=== PATIENT | female | born 1985 | race Caucasian/White ===

== ENCOUNTER 2017-09-24 22:03 | Emergency (ER) | payer BC, OTHER ==
[2017-09-24] MEDS: Morphine 4 MG/ML Syringe IM ONE (23:35)
--- NOTE | 2017-09-24 23:40 | EDM.PDOC ---
ED HPI GENERAL MEDICAL PROBLEM - General Chief Complaint: Lower Extremity Injury/Pain Stated Complaint: Fall off horse, right hip/groin pain Time Seen by Provider: 09/24/17 22:16 Source of Information: Reports: Patient History Limitations: Reports: No Limitations - History of Present Illness INITIAL COMMENTS - FREE TEXT/NARRATIVE: Patient was riding on her horse when a tractor was started and spooked the horse. She was bucked off and drug with her foot in the stirrup. She is complaining of left pinky pain, as well as pain to the right groin. She does walk in on her own. She denies chest pain, shortness of breath, abdominal pain. She also has some lower back pain. No complaints of distal foot pain/ circulation issues. Onset: Today, Sudden Location: Reports: Back, Lower Extremity, Right Quality: Reports: Ache Severity: Moderate Associated Symptoms: Reports: No Other Symptoms right hip/groin Pain Score (Numeric/FACES): 8 - Related Data Allergies Allergy/AdvReac Type Severity Reaction Status Date / Time No Known Allergies Allergy Verified 09/24/17 23:26 Home Meds: Home Meds Albuterol Sulfate [Proair Hfa] 2 puff INH Q4H PRN 09/24/17 [History] Beclomethasone Dipropionate [Qvar] 2 09/24/17 [History] Montelukast [Singulair] 10 mg PO DAILY 09/24/17 [History] Propranolol [Inderal] 30 mg PO DAILY PRN 09/25/17 [History] Review of Systems - Review of Systems Review Of Systems: See Below Constitutional: Reports: No Symptoms Eyes: Reports: No Symptoms Ears: Reports: No Symptoms Nose: Reports: No Symptoms Mouth/Throat: Reports: No Symptoms Respiratory: Reports: No Symptoms Cardiovascular: Reports: No Symptoms GI/Abdominal: Reports: No Symptoms Genitourinary: Reports: No Symptoms Musculoskeletal: Reports: Hand Pain (left distal phanlanx of 5th digit), Leg Pain (right hip/groin pain) Skin: Reports: Wound (was drug by horse, has abrasions to righ elbow) ED EXAM, GENERAL - Physical Exam Exam: See Below Exam Limited By: No Limitations General Appearance: Alert, WD/WN, Mild Distress Eye Exam: Bilateral Eye: EOMI, Normal Inspection, PERRL Ears: Normal TMs Nose: Normal Inspection, Normal Mucosa, No Blood Throat/Mouth: Normal Inspection, Normal Lips, Normal Teeth, Normal Gums, Normal Oropharynx, Normal Voice, No Airway Compromise Head: Atraumatic, Normocephalic Neck: Normal Inspection, Supple, Non-Tender, Full Range of Motion Respiratory/Chest: No Respiratory Distress, Lungs Clear, Normal Breath Sounds, No Accessory Muscle Use, Chest Non-Tender Cardiovascular: Normal Peripheral Pulses, Regular Rate, Rhythm, No Edema, No Gallop, No JVD, No Murmur, No Rub Peripheral Pulses: 2+: Posterior Tibial (L), Posterior Tibial (R), Dorsalis Pedis (L), Dorsalis Pedis (R) GI/Abdominal: Normal Bowel Sounds, Soft, Non-Tender, No Organomegaly, No Distention, No Abnormal Bruit, No Mass Extremities: Leg Pain (right internal/external rotation of leg does illicit pain ), Other (left 5th digit swelling and pain to distal tip) Neurological: Alert, Oriented, CN II-XII Intact, Normal Cognition, Normal Gait, Normal Reflexes, No Motor/Sensory Deficits Psychiatric: Normal Affect, Normal Mood Skin Exam: Ecchymosis (left 5th digit) Lymphatic: No Adenopathy Course - Vital Signs Last Recorded V/S: Last Vital Signs Temp 36.4 C 09/24/17 22:16 Pulse 85 09/25/17 00:51 Resp 16 09/25/17 00:51 BP 142/83 H 09/25/17 00:51 Pulse Ox 97 09/25/17 00:51 - Orders/Labs/Meds Orders: Active Orders 24 hr Category Date Time Status Fingers Fifth Digit Lt F4 [CR] Stat Exams 09/24/17 22:17 Taken Pelvis 1V or 2V [CR] Stat Exams 09/24/17 22:17 Taken Pelvis wo Cont [CT] Stat Exams 09/24/17 23:34 Taken HCG URINE, POC [POC] Routine Lab 09/24/17 23:45 Ordered DME for Discharge [COMM] Per Unit Routine Oth 09/25/17 00:51 Ordered Labs: Laboratory Tests 09/24/17 Range/Units 23:45 POC Urine HCG, Qual Negative (NEGATIVE) Meds: Medications Discontinued Medications Generic Name Dose Route Start Last Admin Trade Name Freq PRN Reason Stop Dose Admin Hydrocodone Bitart/Acetaminophen 2 packet 09/25/17 01:13 09/25/17 01:20 Take Home: Acetaminophen/Hydrocodone 325-10mg PO 09/25/17 01:14 2 packet ONETIME ONE Administration Cyclobenzaprine HCl 2 packet 09/25/17 01:13 09/25/17 01:20 Take Home: Cyclobenzaprine 10 Mg, 4 Tab Pack PO 09/25/17 01:14 2 packet ONETIME ONE Administration Morphine Sulfate 4 mg 09/24/17 23:20 09/24/17 23:35 Morphine IM 09/24/17 23:21 4 mg ONETIME ONE Administration Ondansetron HCl 4 mg 09/25/17 00:27 09/25/17 00:36 Zofran Odt PO 09/25/17 00:28 4 mg ONETIME ONE Administration Ondansetron HCl 2 packet 09/25/17 01:14 09/25/17 01:20 Take Home: Ondansetron Odt 4 Mg, 2 Tab Pack PO 09/25/17 01:15 2 packet ONETIME ONE Administration - Radiology Interpretation Free Text/Narrative:: X-rays show distal left 5th phalanx fracture and right pubic ring fracture. Dr. Hdz, [facility] [place] was consulted. Recommended an additional CT, light weight bearing with crutches and appointment with him later this week. Departure - Departure Time of Disposition: 01:12 Disposition: Home, Self-Care 01 Condition: Fair Clinical Impression: Pelvic ring fracture Qualifiers: Encounter type: initial encounter Fracture type: closed Qualified Code(s): S32.810A - Multiple fractures of pelvis with stable disruption of pelvic ring, initial encounter for closed fracture Phalanx, distal fracture of finger Qualifiers: Encounter type: initial encounter Finger: little finger Fracture type: closed Fracture alignment: nondisplaced Laterality: left Qualified Code(s): S62.667A - Nondisplaced fracture of distal phalanx of left little finger, initial encounter for closed fracture - Discharge Information Instructions: Crutch Use, Adult, [id number], Simple Pelvic Fracture, Adult Referrals: Lissette Moore MD [Primary Care Provider] - Forms: ED Department Discharge Additional Instructions: Walk with your crutches using light touch to the right leg to avoid making your pelvic fracture worse. You may use ice for any swelling and pain. Please take the hydrocodone 1 table every 4-6 hours for pain. Make an appointment at the [facility] in [place]. Please call them morning and schedule with Dr. Hdz. He will address your options for treatment at that time. YOU NEED TO STAY HOME FROM WORK UNTIL YOU MEET WITH DR. HDZ AND A PLAN CAN BE DETERMINED FOR FUTURE TREATMENT AND REHAB. Please call us with any questions or concerns. ED Communication - ED Communication Date/Time Date: 09/25/17 Time Called: 23:15 - Discussed Case With (1) Discussed Case With (1): Other (I did discuss case with Dr. Hdz in orthopedics. He had looked at the images and recommended follow up with him on . She needs to use crutches and walk with light touch/light weight bearing on right side.) - Problem List & Annotations (1) Pelvic ring fracture SNOMED Code(s): 02736549 Code(s): S32.810A - MULTIPLE FX OF PELVIS W STABLE DISRUPT OF PELVIC RING, INIT Status: Acute Priority: Medium Qualifiers: Encounter type: initial encounter Fracture type: closed Qualified Code(s) : S32.810A - Multiple fractures of pelvis with stable disruption of pelvic ring , initial encounter for closed fracture (2) Phalanx, distal fracture of finger SNOMED Code(s): 98834696 Code(s): S62.639A - DISP FX OF DISTAL PHALANX OF UNSP FINGER, INIT FOR CLOS FX Status: Acute Priority: Low Qualifiers: Encounter type: initial encounter Finger: little finger Fracture type: closed Fracture alignment: nondisplaced Laterality: left Qualified Code(s) : S62.667A - Nondisplaced fracture of distal phalanx of left little finger, initial encounter for closed fracture - Problem List Review Problem List Initiated/Reviewed/Updated: Yes - My Orders Last 24 Hours: My Active Orders 09/24/17 22:17 Fingers Fifth Digit Lt F4 [CR] Stat Pelvis 1V or 2V [CR] Stat 09/24/17 23:34 Pelvis wo Cont [CT] Stat 09/24/17 23:45 HCG URINE, POC [POC] Routine 09/25/17 00:51 DME for Discharge [COMM] Per Unit Routine - Assessment/Plan Last 24 Hours: My Active Orders 09/24/17 22:17 Fingers Fifth Digit Lt F4 [CR] Stat Pelvis 1V or 2V [CR] Stat 09/24/17 23:34 Pelvis wo Cont [CT] Stat 09/24/17 23:45 HCG URINE, POC [POC] Routine 09/25/17 00:51 DME for Discharge [COMM] Per Unit Routine Assessment:: right pelvic ring fracture Left distal phalanx fracture of the 5th digit Plan: Walk with your crutches using light touch to the right leg to avoid making your pelvic fracture worse. You may use ice for any swelling and pain. Please take the hydrocodone 1 table every 4-6 hours for pain. Make an appointment at the [facility] in [place]. Please call them morning and schedule with Dr. Hdz. He will address your options for treatment at that time. YOU NEED TO STAY HOME FROM WORK UNTIL YOU MEET WITH DR. HDZ AND A PLAN CAN BE DETERMINED FOR FUTURE TREATMENT AND REHAB. Please call us with any questions or concerns.
[2017-09-25] MEDS: Ondansetron 4 MG Tab.DIS PO ONE (00:36)
[2017-09-25] MEDS: Take Home: Acetaminophen/HYDROcodone 325-10 MG, 5 Tab Pack PO ONE (01:20)
[2017-09-25] MEDS: Take Home: Cyclobenzaprine 10 MG Tab, 4 Tab Pack PO ONE (01:20)
[2017-09-25] MEDS: Take Home: Ondansetron 4 MG Tab.DIS, 2 Tab Pack PO ONE (01:20)
== END 2017-09-25 01:28 | disposition home or self-care (01) ==
LOC: VM.ED 22:03
DX: S32.810A Multiple fractures of pelvis with stable disruption of pelvic ring, initial encounter for closed fracture (principal); S62.667A Nondisplaced fracture of distal phalanx of left little finger, initial encounter for closed fracture; Z79.899 Other long term (current) drug therapy; V80.010A Animal-rider injured by fall from or being thrown from horse in noncollision accident, initial encounter; Y93.52 Activity, horseback riding
CPT/HCPCS: 72170; 72192; 73140; 81025; 96372; 99284; A9270; J2270